=== PATIENT | female | born 1970 ===

== ENCOUNTER 2016-11-08 16:32 | Emergency (ER) | payer OTHER ==
[2016-11-08 16:58] VITALS: BP 129/69; PULSE 73; RESP 16; TEMP 97.8; O2SAT 99
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
== END 2016-11-08 18:43 | disposition home or self-care (01) ==
LOC: H.ER 16:32
DX: S46.912A Strain of unspecified muscle, fascia and tendon at shoulder and upper arm level, left arm, initial encounter (principal); S46.911A Strain of unspecified muscle, fascia and tendon at shoulder and upper arm level, right arm, initial encounter

== ENCOUNTER 2016-11-17 10:02 | Emergency (ER) | payer OTHER ==
[2016-11-17 10:07] VITALS: BMI 26.4
[2016-11-17 10:08] VITALS: BP 141/89; PULSE 60; RESP 18; TEMP 98; O2SAT 100
[2016-11-17] MEDS ORDERED: Sodium Chloride 0.9% 1,000 ML IV STA (10:33)
[2016-11-17 11:15] LABS: BASO % 0.5 % (0.0-2.0); EOS # 0.1 K/uL (0.0-0.7); EOS % 0.8 % (0.0-4.0); HEMATOCRIT 34.5 % (34.0-47.0); LYMPH # 2.8 K/uL (1.0-4.3); LYMPH % 39.7 % (20.0-40.0); MEAN CELL VOLUME 89.6 fl (81.0-99.0); MEAN CORPUSCULAR HEMOGLOBIN 30.1 pg (27.0-31.0); MEAN CORPUSCULAR HGB CONC 33.6 g/dL (33.0-37.0); MEAN PLATELET VOLUME 7.2 fl (7.2-11.7); MONO # 0.5 K/uL (0.0-0.8); MONO % 6.5 % (0.0-10.0); NEUT # 3.7 K/uL (1.8-7.0); NEUT % 52.5 % (50.0-75.0); NRBC % 0.1 % (0.0-0.0); RED CELL DISTRIBUTION WIDTH 13.2 % (11.5-14.5); WHITE BLOOD COUNT 7.1 K/uL (4.8-10.8)
[2016-11-17 11:27] LABS: BLOOD UREA NITROGEN 14 mg/dl (7-17); CALCIUM 9.8 mg/dL (8.4-10.2); CARBON DIOXIDE 29 mmol/L (22-30); CHLORIDE 101 mmol/L (98-107); GFR AFRICAN-AMERICAN > 60; GLUCOSE,RANDOM 93 mg/dL (65-105); POTASSIUM 4.3 MMOL/L (3.6-5.0); SODIUM 142 mmol/l (132-148)
--- NOTE | 2016-11-17 11:48 | CT ---
PROCEDURE: CT HEAD WITHOUT CONTRAST. HISTORY: headache COMPARISON: None available. TECHNIQUE: Axial computed tomography images were obtained through the head/brain without intravenous contrast. Radiation dose: Total exam DLP = 876 mGy-cm. This CT exam was performed using one or more of the following dose reduction techniques: Automated exposure control, adjustment of the mA and/or kV according to patient size, and/or use of iterative reconstruction technique. FINDINGS: HEMORRHAGE: No intracranial hemorrhage. BRAIN: No mass effect or edema. No atrophy or chronic microvascular ischemic changes. VENTRICLES: Unremarkable. No hydrocephalus. CALVARIUM: Unremarkable. PARANASAL SINUSES: Unremarkable as visualized. No significant inflammatory changes. MASTOID AIR CELLS: Unremarkable as visualized. No inflammatory changes. OTHER FINDINGS: None. IMPRESSION: Normal CT of the Head.
--- NOTE | 2016-11-17 13:50 | ED PDOC ---
HPI: Headache Time Seen by Provider: 11/17/16 10:23 Chief Complaint (Nursing): Headache Chief Complaint (Provider): i have a migrane again History Per: Patient History/Exam Limitations: no limitations Onset/Duration Of Symptoms: Hrs (6), Gradual Current Symptoms Are (Timing): Still Present Severity: Moderate Quality: Sharp Preceeding Symptoms: None Associated Symptoms: Photophobia, Nausea. denies: Blurred Vision, Vomiting, Extremity Weakness Additional Complaint(s): 46yo female hx migranes presents from her overnight job where she developed slow onset migrane around 2am. Denies syncope, weakness, fever. She states symptoms typical to past migranes, with nausea and light sensitivity. Also has chronic neck pain for which she relates headaches to. Past Medical History Reviewed: Historical Data, Nursing Documentation, Vital Signs Vital Signs: Last Vital Signs Temp 98.0 F 11/17/16 10:08 Pulse 60 11/17/16 10:08 Resp 18 11/17/16 10:08 BP 141/89 11/17/16 10:08 Pulse Ox 100 11/17/16 10:08 - Medical History PMH: Asthma, Bronchitis, Migraine - Surgical History Surgical History: Tonsillectomy - Family History Family History: States: Diabetes, Hypertension - Living Arrangements Living Arrangements: With Family - Social History Current smoker - smoking cessation education provided: No Alcohol: None - Immunization History Hx Tetanus Toxoid Vaccination: (3 years ago) - Home Medications Home Medications: Ambulatory Orders Medication Instructions Recorded Albuterol HFA [Ventolin HFA 90 2 puff INH Q4H PRN 04/19/14 mcg/actuation (8 g)] Famotidine [Pepcid] 20 mg PO ONCE #14 tab 04/19/14 Cyclobenzaprine HCl [Flexeril] 10 mg PO Q8H #10 tab 07/15/14 Naproxen [Naprosyn] 500 mg PO Q12H #20 tab 07/15/14 Famotidine [Pepcid] 20 mg PO DAILY PRN #6 tab 08/27/14 Ibuprofen [Motrin] 600 mg PO Q8 PRN #6 tab 08/27/14 Ondansetron [Zofran] 4 mg PO Q8H PRN #6 tab 08/27/14 Azithromycin [Zithromax Z-Emmanuel] 250 mg PO DAILY #5 tab 04/15/15 Nitrofurantoin Macrocrystals 100 mg PO BID #14 cap 09/10/15 [Macrobid] Acetaminophen with Codeine 1 tab PO Q8H #10 tab 09/18/15 [Tylenol with Codeine No. 3 300 mg-30 mg] Naproxen [Naprosyn] 500 mg PO Q12H #20 tab 09/18/15 Azithromycin [Zithromax Z-Emmanuel] 250 mg PO DAILY #1 pkg 11/19/15 Prednisone 60 mg PO QAM #12 tablet 11/19/15 traMADol [Ultram] 50 mg PO Q6 #16 tab 11/19/15 Metoclopramide HCl [Reglan] 10 mg PO Q8 PRN #10 tablet 01/08/16 Naproxen [Naprosyn] 500 mg PO BID PRN #30 tab 01/08/16 Azithromycin [Zithromax Z-Emmanuel] 250 mg PO DAILY #1 pkg 02/19/16 Methylprednisolone [Medrol Dosepak] 4 mg PO ASDIR #1 pkg 02/19/16 Promethazine HCl/Codeine 10 ml PO Q6 PRN #6 oz 02/19/16 [Prometh-Codein 6.25-10 mg/5 ml] Naproxen [Naprosyn] 500 mg PO Q12 PRN #14 tablet 05/03/16 Ibuprofen [Motrin] 600 mg PO Q6 #20 tab 05/19/16 traMADol [Ultram] 50 mg PO Q8 #10 tab 09/15/16 Naproxen [Naprosyn Tab] 375 mg PO Q8 PRN #21 tab 11/08/16 diaZEpam [Valium] 5 mg PO Q6 PRN #8 tab 11/08/16 Metoclopramide [Reglan] 10 mg PO TID PRN #10 tab 11/17/16 Naproxen [Naprosyn] 500 mg PO BID PRN #14 tablet 11/17/16 - Allergies Allergies/Adverse Reactions: Allergies Allergy/AdvReac Type Severity Reaction Status Date / Time acetaminophen [From Tylenol] AdvReac NAUSEA Verified 05/19/16 17:10 Review of Systems ROS Statement: Except As Marked, All Systems Reviewed And Found Negative Constitutional: Negative for: Fever, Chills Eyes: Positive for: Pain. Negative for: Eyelid Inflammation, Redness Cardiovascular: Negative for: Chest Pain, Palpitations Respiratory: Negative for: Cough, Shortness of Breath Gastrointestinal: Positive for: Nausea. Negative for: Vomiting Genitourinary Female: Negative for: Dysuria, Frequency, Incontinence Musculoskeletal: Negative for: Shoulder Pain Skin: Negative for: Rash, Lesions Neurological: Positive for: Headache. Negative for: Weakness, Numbness, Incoordination, Change in Speech, Altered Mental Status, Dizziness Psych: Negative for: Anxiety, Depression Physical Exam - Reviewed Nursing Documentation Reviewed: Yes Vital Signs Reviewed: Yes - Physical Exam Appears: Positive for: Well, Non-toxic, No Acute Distress Head Exam: Positive for: ATRAUMATIC, NORMAL INSPECTION, NORMOCEPHALIC Skin: Positive for: Normal Color, Warm, DRY Eye Exam: Positive for: EOMI, Normal appearance, PERRL ENT: Positive for: Normal ENT Inspection Neck: Positive for: Normal, Painless ROM Cardiovascular/Chest: Positive for: Regular Rate, Rhythm Respiratory: Positive for: CNT, Normal Breath Sounds Gastrointestinal/Abdominal: Positive for: Normal Exam, Bowel Sounds, Soft Back: Positive for: Normal Inspection Extremity: Positive for: Normal ROM Neurologic/Psych: Positive for: Alert, Oriented - Laboratory Results Result Diagrams: 11/17/16 11:11 11/17/16 11:11 - ECG O2 Sat by Pulse Oximetry: 100 Pulse Ox Interpretation: Normal - CT Scan/US CT brain Other Rad Studies (CT/US): Radiology Report Reviewed Other Rad Interpretation: normal brain Medical Decision Making Medical Decision Making: labs and CT brain ordered. IVF, toradol and reglan initiated in ED. CT report and labs reviewed. Improved over course of 3 hours. Tolerated PO after hunger returned. Denies neck pain or headache on re-eval, wants to go home. Sleep habits discussed given overnight job. Disposition - Clinical Impression Clinical Impression: Headache - Patient ED Disposition Is Patient to be Admitted: No Counseled Patient/Family Regarding: Studies Performed, Diagnosis, Need For Followup, Rx Given - Disposition Referrals: Babar Marcelino MD [Medical Doctor] - Disposition: Routine/Home Disposition Time: 12:35 Condition: STABLE Additional Instructions: Followup with neurologist as directed. Take medication as needed for symptoms. Prescriptions: Naproxen [Naprosyn] 500 mg PO BID PRN #14 tablet PRN Reason: Pain, Moderate (4-7) Metoclopramide [Reglan] 10 mg PO TID PRN #10 tab PRN Reason: Migraine Headache Instructions: Acute Headache (ED) Print Language: INDONESIAN
== END 2016-11-17 13:46 | disposition home or self-care (01) ==
LOC: H.ER 10:02
DX: R51 Headache (principal); R11.0 Nausea; J45.909 Unspecified asthma, uncomplicated

== ENCOUNTER 2017-05-17 10:36 | Emergency (ER) | payer OTHER ==
[2017-05-17 10:43] VITALS: O2SAT 100; BMI 26.1
--- NOTE | 2017-05-17 12:30 | ED PDOC ---
HPI: General Adult Time Seen by Provider: 05/17/17 10:47 Chief Complaint (Nursing): Cough, Cold, Congestion History Per: Patient Additional Complaint(s): Pt. states for the past week she's had cough productive yellow sputum associated with tactile fever. Also reports developing atraumatic non-radiating pain to the L shoulder. Denies numbness, tingling, hemoptysis, recent travel, chest pain, SOB, palpitations. Past Medical History Reviewed: Historical Data, Nursing Documentation, Vital Signs Vital Signs: Last Vital Signs Temp 98.5 F 05/17/17 10:42 Pulse 72 05/17/17 10:42 Resp 20 05/17/17 10:42 BP 125/78 05/17/17 10:42 Pulse Ox 100 05/17/17 10:42 - Medical History PMH: Asthma, Bronchitis, Migraine - Surgical History Surgical History: Tonsillectomy - Family History Family History: States: Diabetes, Hypertension - Immunization History Hx Tetanus Toxoid Vaccination: (3 years ago) - Home Medications Home Medications: Ambulatory Orders Medication Instructions Recorded Albuterol HFA [Ventolin HFA 90 2 puff INH Q4H PRN 04/19/14 mcg/actuation (8 g)] Famotidine [Pepcid] 20 mg PO ONCE #14 tab 04/19/14 Cyclobenzaprine HCl [Flexeril] 10 mg PO Q8H #10 tab 07/15/14 Naproxen [Naprosyn] 500 mg PO Q12H #20 tab 07/15/14 Famotidine [Pepcid] 20 mg PO DAILY PRN #6 tab 08/27/14 Ibuprofen [Motrin] 600 mg PO Q8 PRN #6 tab 08/27/14 Ondansetron [Zofran] 4 mg PO Q8H PRN #6 tab 08/27/14 Azithromycin [Zithromax Z-Emmanuel] 250 mg PO DAILY #5 tab 04/15/15 Nitrofurantoin Macrocrystals 100 mg PO BID #14 cap 09/10/15 [Macrobid] Acetaminophen with Codeine 1 tab PO Q8H #10 tab 09/18/15 [Tylenol with Codeine No. 3 300 mg-30 mg] Naproxen [Naprosyn] 500 mg PO Q12H #20 tab 09/18/15 Azithromycin [Zithromax Z-Emmanuel] 250 mg PO DAILY #1 pkg 11/19/15 Prednisone 60 mg PO QAM #12 tablet 11/19/15 traMADol [Ultram] 50 mg PO Q6 #16 tab 11/19/15 Metoclopramide HCl [Reglan] 10 mg PO Q8 PRN #10 tablet 01/08/16 Naproxen [Naprosyn] 500 mg PO BID PRN #30 tab 01/08/16 Azithromycin [Zithromax Z-Emmanuel] 250 mg PO DAILY #1 pkg 02/19/16 Methylprednisolone [Medrol Dosepak] 4 mg PO ASDIR #1 pkg 02/19/16 Promethazine HCl/Codeine 10 ml PO Q6 PRN #6 oz 02/19/16 [Prometh-Codein 6.25-10 mg/5 ml] Naproxen [Naprosyn] 500 mg PO Q12 PRN #14 tablet 05/03/16 Ibuprofen [Motrin] 600 mg PO Q6 #20 tab 05/19/16 traMADol [Ultram] 50 mg PO Q8 #10 tab 09/15/16 Naproxen [Naprosyn Tab] 375 mg PO Q8 PRN #21 tab 11/08/16 diaZEpam [Valium] 5 mg PO Q6 PRN #8 tab 11/08/16 Metoclopramide [Reglan] 10 mg PO TID PRN #10 tab 11/17/16 Naproxen [Naprosyn] 500 mg PO BID PRN #14 tablet 11/17/16 Azithromycin [Zithromax] 250 mg PO DAILY #6 tab 05/17/17 Benzonatate [Tessalon Perle] 100 mg PO Q8 PRN #30 capsule 05/17/17 Cyclobenzaprine [Cyclobenzaprine 10 mg PO Q8 PRN #30 tab 05/17/17 HCl] Meloxicam [Mobic] 7.5 mg PO DAILY PRN #30 tab 05/17/17 - Allergies Allergies/Adverse Reactions: Allergies Allergy/AdvReac Type Severity Reaction Status Date / Time acetaminophen [From Tylenol] AdvReac NAUSEA Verified 05/19/16 17:10 Review of Systems ROS Statement: Except As Marked, All Systems Reviewed And Found Negative Respiratory: Positive for: Cough, Sputum Musculoskeletal: Positive for: Shoulder Pain Physical Exam - Physical Exam Appears: Positive for: Well, Non-toxic, No Acute Distress Skin: Positive for: Normal Color, Warm. Negative for: Rash Eye Exam: Positive for: Normal appearance ENT: Positive for: Normal ENT Inspection Neck: Positive for: Normal, Painless ROM Cardiovascular/Chest: Positive for: Regular Rate, Rhythm Respiratory: Positive for: Normal Breath Sounds. Negative for: Crackles, Rales , Wheezing Pulses-Radial (L): 2+ Pulses-Radial (R): 2+ Extremity: Positive for: Normal ROM, Capillary Refill (< 2 seconds of LUE), Other (L shoulder with parascapular muscle spasm without deformity or lateral shoulder tenderness; equal community support professional strength b/l) Neurologic/Psych: Positive for: Alert, Oriented - ECG O2 Sat by Pulse Oximetry: 100 - Radiology X-Ray: Interpreted by Me (CXR) X-Ray Interpretation: No Acute Disease Disposition - Clinical Impression Clinical Impression: Acute bronchitis, Muscle spasm - Patient ED Disposition Is Patient to be Admitted: No - Disposition Disposition: Routine/Home Disposition Time: 12:37 Condition: STABLE Prescriptions: Azithromycin [Zithromax] 250 mg PO DAILY #6 tab Benzonatate [Tessalon Perle] 100 mg PO Q8 PRN #30 capsule PRN Reason: Cough Cyclobenzaprine [Cyclobenzaprine HCl] 10 mg PO Q8 PRN #30 tab PRN Reason: Muscle Spasm Meloxicam [Mobic] 7.5 mg PO DAILY PRN #30 tab PRN Reason: Pain, Mild (1-3) Instructions: Acute Bronchitis (ED), Muscle Spasm (ED) Print Language: GERMAN
[2017-05-17 13:05] VITALS: BP 119/64; PULSE 67; RESP 16; TEMP 98.2
--- NOTE | 2017-05-17 13:34 | RAD ---
HISTORY: cough COMPARISON: 11/18/2015 No prior. TECHNIQUE: Chest PA and lateral FINDINGS: LUNGS: No active pulmonary disease. PLEURA: No significant pleural effusion identified. No pneumothorax apparent. CARDIOVASCULAR: Normal. OSSEOUS STRUCTURES: No significant abnormalities. VISUALIZED UPPER ABDOMEN: Normal. OTHER FINDINGS: None. IMPRESSION: No active disease. No significant interval change compared to the prior examination(s). Please note: No preliminary report/ innterpretation of this examination provided by emergency department personnel.
--- NOTE | 2017-05-18 10:36 | CARD ---
APPROVED REPORT EKG Measurement Heart [id number] <Conclusion> Normal sinus rhythm Septal infarct, age undetermined Abnormal ECG
== END 2017-05-17 13:04 | disposition home or self-care (01) ==
LOC: H.ER 10:36
DX: J20.9 Acute bronchitis, unspecified (principal); M25.512 Pain in left shoulder
CPT/HCPCS: 71020; 81025; 93005; 96372; 99284; J1885

== ENCOUNTER 2017-06-26 11:33 | Emergency (ER) | payer OTHER ==
[2017-06-26 11:33] VITALS: BMI 26.1
[2017-06-26 11:57] VITALS: RESP 16
[2017-06-26] MEDS ORDERED: Sodium Chloride 0.9% 1,000 ML IV STA (12:10)
[2017-06-26 13:19] LABS: BASO # 0.1 K/uL (0.0-0.2); BASO % 1.7 % (0.0-2.0); EOS # 0.1 K/uL (0.0-0.7); EOS % 1.7 % (0.0-4.0); HEMATOCRIT 35.9 % (34.0-47.0); LYMPH # 3.6 K/uL (1.0-4.3); LYMPH % 46.3 % (20.0-40.0); MEAN CELL VOLUME 89.8 fl (81.0-99.0); MEAN CORPUSCULAR HEMOGLOBIN 29.9 pg (27.0-31.0); MEAN CORPUSCULAR HGB CONC 33.3 g/dL (33.0-37.0); MONO # 0.6 K/uL (0.0-0.8); MONO % 7.2 % (0.0-10.0); NEUT # 3.3 K/uL (1.8-7.0); NEUT % 43.1 % (50.0-75.0); NRBC % 0.1 % (0.0-0.0); RED CELL DISTRIBUTION WIDTH 13.2 % (11.5-14.5); WHITE BLOOD COUNT 7.7 K/uL (4.8-10.8)
[2017-06-26 13:28] LABS: RBC URINE 6 /hpf (0-3); URINE BACTERIA RARE (<OCC); URINE BILIRUBIN NEGATIVE (NEGATIVE); URINE BLOOD NEGATIVE (NEGATIVE); URINE COLOR YELLOW (YELLOW); URINE GLUCOSE (UA) NEG (Normal); URINE KETONE NEGATIVE (NEGATIVE); URINE LEUKOCYTE ESTERASE NEG Leu/uL (Negative); URINE PROTEIN 30 mg/dL (NEGATIVE); WBC URINE 1 /hpf (0-5)
[2017-06-26 13:32] LABS: ALB/GLOB RATIO 1.3 (1.0-2.1); ALKALINE PHOSPHATASE 66 U/L (38-126); ALT/SGPT 30 U/L (9-52); AST/SGOT 20 U/L (14-36); BILIRUBIN,TOTAL 0.4 mg/dl (0.2-1.3); BLOOD UREA NITROGEN 13 mg/dl (7-17); CARBON DIOXIDE 27 mmol/L (22-30); CHLORIDE 106 mmol/L (98-107); GFR AFRICAN-AMERICAN > 60; GLUCOSE,RANDOM 75 mg/dL (65-105); POTASSIUM 3.9 MMOL/L (3.6-5.0); SODIUM 141 mmol/l (132-148); TOTAL PROTEIN 7.3 G/DL (6.3-8.2)
--- NOTE | 2017-06-26 14:51 | ED PDOC ---
HPI: General Adult Time Seen by Provider: 06/26/17 12:09 Chief Complaint (Nursing): Weakness/Neurological Deficit Chief Complaint (Provider): Dizziness History Per: Patient History/Exam Limitations: no limitations Additional Complaint(s): Mee Valiente is a 46 year old female that presents to the ED with a history of asthma, bronchitis, and migraines that presents to the ED with a chief complaint of dizziness and a concern of missing her period. Patient reports that her LMP was on 05/11/17 and that she has had sexual intercourse since then, concern for . Patient reports that after the sexual encounter and approximately 2 weeks ago she had one day of discharge but that has since resolved. She states that she has some dysuria, but denies any abdominal pain, back pain, fever, vomiting, or diarrhea. Past Medical History Reviewed: Historical Data, Nursing Documentation, Vital Signs Vital Signs: Last Vital Signs Temp Pulse 79 06/26/17 11:52 Resp 16 06/26/17 11:52 BP 116/59 L 06/26/17 11:52 Pulse Ox 99 06/26/17 15:27 - Medical History PMH: Asthma, Bronchitis, Migraine - Surgical History Surgical History: Tonsillectomy - Family History Family History: States: Diabetes, Hypertension - Immunization History Hx Tetanus Toxoid Vaccination: (3 years ago) - Home Medications Home Medications: Ambulatory Orders Medication Instructions Recorded Albuterol HFA [Ventolin HFA 90 2 puff INH Q4H PRN 04/19/14 mcg/actuation (8 g)] Famotidine [Pepcid] 20 mg PO ONCE #14 tab 04/19/14 Cyclobenzaprine HCl [Flexeril] 10 mg PO Q8H #10 tab 07/15/14 Naproxen [Naprosyn] 500 mg PO Q12H #20 tab 07/15/14 Famotidine [Pepcid] 20 mg PO DAILY PRN #6 tab 08/27/14 Ibuprofen [Motrin] 600 mg PO Q8 PRN #6 tab 08/27/14 Ondansetron [Zofran] 4 mg PO Q8H PRN #6 tab 08/27/14 Azithromycin [Zithromax Z-Emmanuel] 250 mg PO DAILY #5 tab 04/15/15 Nitrofurantoin Macrocrystals 100 mg PO BID #14 cap 09/10/15 [Macrobid] Acetaminophen with Codeine 1 tab PO Q8H #10 tab 09/18/15 [Tylenol with Codeine No. 3 300 mg-30 mg] Naproxen [Naprosyn] 500 mg PO Q12H #20 tab 09/18/15 Azithromycin [Zithromax Z-Emmanuel] 250 mg PO DAILY #1 pkg 11/19/15 Prednisone 60 mg PO QAM #12 tablet 11/19/15 traMADol [Ultram] 50 mg PO Q6 #16 tab 11/19/15 Metoclopramide HCl [Reglan] 10 mg PO Q8 PRN #10 tablet 01/08/16 Naproxen [Naprosyn] 500 mg PO BID PRN #30 tab 01/08/16 Azithromycin [Zithromax Z-Emmanuel] 250 mg PO DAILY #1 pkg 02/19/16 Methylprednisolone [Medrol Dosepak] 4 mg PO ASDIR #1 pkg 02/19/16 Promethazine HCl/Codeine 10 ml PO Q6 PRN #6 oz 02/19/16 [Prometh-Codein 6.25-10 mg/5 ml] Naproxen [Naprosyn] 500 mg PO Q12 PRN #14 tablet 05/03/16 Ibuprofen [Motrin] 600 mg PO Q6 #20 tab 05/19/16 traMADol [Ultram] 50 mg PO Q8 #10 tab 09/15/16 Naproxen [Naprosyn Tab] 375 mg PO Q8 PRN #21 tab 11/08/16 diaZEpam [Valium] 5 mg PO Q6 PRN #8 tab 11/08/16 Metoclopramide [Reglan] 10 mg PO TID PRN #10 tab 11/17/16 Naproxen [Naprosyn] 500 mg PO BID PRN #14 tablet 11/17/16 Azithromycin [Zithromax] 250 mg PO DAILY #6 tab 05/17/17 Benzonatate [Tessalon Perle] 100 mg PO Q8 PRN #30 capsule 05/17/17 Cyclobenzaprine [Cyclobenzaprine 10 mg PO Q8 PRN #30 tab 05/17/17 HCl] Meloxicam [Mobic] 7.5 mg PO DAILY PRN #30 tab 05/17/17 Ciprofloxacin [Cipro] 250 mg PO BID #6 tab 06/26/17 - Allergies Allergies/Adverse Reactions: Allergies Allergy/AdvReac Type Severity Reaction Status Date / Time acetaminophen [From Tylenol] AdvReac NAUSEA Verified 05/19/16 17:10 Review of Systems Constitutional: Negative for: Fever Gastrointestinal: Negative for: Vomiting, Abdominal Pain, Diarrhea Genitourinary Female: Positive for: Dysuria (mild) Musculoskeletal: Negative for: Back Pain Physical Exam - Reviewed Nursing Documentation Reviewed: Yes Vital Signs Reviewed: Yes - Physical Exam Appears: Positive for: Non-toxic, No Acute Distress Head Exam: Positive for: ATRAUMATIC, NORMOCEPHALIC Skin: Positive for: Normal Color, Warm Eye Exam: Positive for: Normal appearance, EOMI, PERRL Neck: Positive for: Normal, Supple Cardiovascular/Chest: Positive for: Regular Rate, Rhythm. Negative for: Murmur Respiratory: Positive for: Normal Breath Sounds. Negative for: Wheezing Gastrointestinal/Abdominal: Positive for: Normal Exam, Soft. Negative for: Tenderness Pelvic Exam: Positive for: External Exam Normal, Other (trace homogenous discharge). Negative for: Active Bleeding, Blood, Cervicitis, Tender Uterus Back: Positive for: Normal Inspection. Negative for: L CVA Tenderness, R CVA Tenderness Extremity: Positive for: Normal ROM. Negative for: Deformity, Swelling Neurologic/Psych: Positive for: Alert, emergency room orderly II-XII, Oriented, Cerebellar Tests ( normal), Gait (steady). Negative for: Motor/Sensory Deficits, Aphasia, Facial Droop - Laboratory Results Result Diagrams: 06/26/17 13:10 06/26/17 13:10 - ECG O2 Sat by Pulse Oximetry: 99 (RA) Pulse Ox Interpretation: Normal Medical Decision Making Medical Decision Making: Impression: Dizziness Plan: * Accucheck * Urine * Urinalysis * Urine dip * NaCl 1000 mLs at 1000 mLs/hr * Reevaluation Bloodwork revealed stable anemia. UA reveals trace red cells without glucocytes , urine culture was ordered. Given symptoms, patient will likely be given a short course of antibiotics and offered a pelvic exam. Followup cultures, Rx cipro x3 days, see Dr Zafar for full pelvic exam and pap / workup of ammenorrhea Scribe Attestation: Documented by Rimma Marquez, acting as a scribe for Jeremy Randall III, DO. Provider Scribe Attestation: All medical record entries made by the Scribe were at my direction and personally dictated by me. I have reviewed the chart and agree that the record accurately reflects my personal performance of the history, physical exam, medical decision making, and the department course for this patient. I have also personally directed, reviewed, and agree with the discharge instructions and disposition. Disposition - Clinical Impression Clinical Impression: Dizziness, UTI (urinary tract infection) - Patient ED Disposition Is Patient to be Admitted: No Counseled Patient/Family Regarding: Studies Performed, Diagnosis, Need For Followup, Rx Given - Disposition Referrals: Sushil Zafar MD [Staff Provider] - Disposition: Routine/Home Disposition Time: 14:59 Condition: STABLE Additional Instructions: Followup with SAFETY TECHNICIAN and your primary doctor in 2-3 days. Return to ER for any worse or new symptoms. Prescriptions: Ciprofloxacin [Cipro] 250 mg PO BID #6 tab Instructions: Lightheadedness (ED), Urinary Tract Infection in Women (ED) Forms: [employer] (Ukrainian)
[2017-06-26 15:39] VITALS: BP 121/64; PULSE 73; TEMP 98.3
[2017-06-26 15:40] VITALS: O2SAT 99
== END 2017-06-26 15:38 | disposition home or self-care (01) ==
LOC: H.ER 11:33
DX: R42 Dizziness and giddiness (principal); N39.0 Urinary tract infection, site not specified
CPT/HCPCS: 80053; 81003; 81025; 82948; 84484; 84702; 85025; 87070; 87086; 87491; 87591; 96360; 99284; J7040

== ENCOUNTER 2017-12-15 16:54 | Emergency (ER) | payer OTHER ==
[2017-12-15 16:54] VITALS: BMI 26.1
--- NOTE | 2017-12-15 18:09 | RAD ---
HISTORY: left flank pain, worse with breathing and palpitations. COMPARISON: 05/17/2017 TECHNIQUE: Chest PA and lateral FINDINGS: LUNGS: No active pulmonary disease. PLEURA: No significant pleural effusion identified. No pneumothorax apparent. CARDIOVASCULAR: Normal. OSSEOUS STRUCTURES: No significant abnormalities. VISUALIZED UPPER ABDOMEN: Normal. OTHER FINDINGS: None. IMPRESSION: No active disease. No significant interval change compared to the prior examination(s).
[2017-12-15] MEDS ORDERED: Oxycodone/Acetaminophen 5/325 mg Tab PO STA (19:03)
--- NOTE | 2017-12-15 19:10 | ED PDOC ---
HPI: Back Time Seen by Provider: 12/15/17 17:19 Chief Complaint (Nursing): Back Pain Chief Complaint (Provider): Back Pain History Per: Patient History/Exam Limitations: no limitations Onset/Duration Of Symptoms: Days (x5) Current Symptoms Are (Timing): Still Present Additional Complaint(s): 47 y/o female with no significant pmhx, who presents to the ED for evaluation of left mid back and flank pain x5 days. Patient denies taking any medication for pain or injury. States the pain is exacerbated by deep inspiration, movement of the left arm, and contact to the area. Denies any similar injury in the past. Of note: Patient denies taking oral contraceptives, smoking, history of autoimmune diseases, and fmhx of clotting. PMD: None Past Medical History Reviewed: Historical Data, Nursing Documentation, Vital Signs Vital Signs: Last Vital Signs Temp 97.3 F L 12/15/17 16:59 Pulse 69 12/15/17 16:59 Resp 16 12/15/17 16:59 BP 134/72 12/15/17 16:59 Pulse Ox 100 12/15/17 16:59 - Medical History PMH: Asthma, Bronchitis, Migraine - Surgical History Surgical History: Tonsillectomy - Family History Family History: States: Diabetes, Hypertension - Immunization History Hx Tetanus Toxoid Vaccination: (3 years ago) - Home Medications Home Medications: Ambulatory Orders Medication Instructions Recorded Albuterol HFA [Ventolin HFA 90 2 puff INH Q4H PRN 04/19/14 mcg/actuation (8 g)] Famotidine [Pepcid] 20 mg PO ONCE #14 tab 04/19/14 Cyclobenzaprine HCl [Flexeril] 10 mg PO Q8H #10 tab 07/15/14 Naproxen [Naprosyn] 500 mg PO Q12H #20 tab 07/15/14 Famotidine [Pepcid] 20 mg PO DAILY PRN #6 tab 08/27/14 Ibuprofen [Motrin] 600 mg PO Q8 PRN #6 tab 08/27/14 Ondansetron [Zofran] 4 mg PO Q8H PRN #6 tab 08/27/14 Azithromycin [Zithromax Z-Emmanuel] 250 mg PO DAILY #5 tab 04/15/15 Nitrofurantoin Macrocrystals 100 mg PO BID #14 cap 09/10/15 [Macrobid] Acetaminophen with Codeine 1 tab PO Q8H #10 tab 09/18/15 [Tylenol with Codeine No. 3 300 mg-30 mg] Naproxen [Naprosyn] 500 mg PO Q12H #20 tab 09/18/15 Azithromycin [Zithromax Z-Emmanuel] 250 mg PO DAILY #1 pkg 11/19/15 Prednisone 60 mg PO QAM #12 tablet 11/19/15 traMADol [Ultram] 50 mg PO Q6 #16 tab 11/19/15 Metoclopramide HCl [Reglan] 10 mg PO Q8 PRN #10 tablet 01/08/16 Naproxen [Naprosyn] 500 mg PO BID PRN #30 tab 01/08/16 Azithromycin [Zithromax Z-Emmanuel] 250 mg PO DAILY #1 pkg 02/19/16 Methylprednisolone [Medrol Dosepak] 4 mg PO ASDIR #1 pkg 02/19/16 Promethazine HCl/Codeine 10 ml PO Q6 PRN #6 oz 02/19/16 [Prometh-Codein 6.25-10 mg/5 ml] Naproxen [Naprosyn] 500 mg PO Q12 PRN #14 tablet 05/03/16 Ibuprofen [Motrin] 600 mg PO Q6 #20 tab 05/19/16 traMADol [Ultram] 50 mg PO Q8 #10 tab 09/15/16 Naproxen [Naprosyn Tab] 375 mg PO Q8 PRN #21 tab 11/08/16 diaZEpam [Valium] 5 mg PO Q6 PRN #8 tab 11/08/16 Metoclopramide [Reglan] 10 mg PO TID PRN #10 tab 11/17/16 Naproxen [Naprosyn] 500 mg PO BID PRN #14 tablet 11/17/16 Azithromycin [Zithromax] 250 mg PO DAILY #6 tab 05/17/17 Benzonatate [Tessalon Perle] 100 mg PO Q8 PRN #30 capsule 05/17/17 Cyclobenzaprine [Cyclobenzaprine 10 mg PO Q8 PRN #30 tab 05/17/17 HCl] Meloxicam [Mobic] 7.5 mg PO DAILY PRN #30 tab 05/17/17 Ciprofloxacin [Cipro] 250 mg PO BID #6 tab 06/26/17 oxyCODONE/Acetaminophen [Percocet 1 ea PO Q6H PRN #10 tab 12/15/17 5/325 mg Tab] - Allergies Allergies/Adverse Reactions: Allergies Allergy/AdvReac Type Severity Reaction Status Date / Time acetaminophen [From Tylenol] AdvReac NAUSEA Verified 05/19/16 17:10 ibuprofen [From Motrin] AdvReac VOMITING Verified 12/15/17 16:59 Review of Systems ROS Statement: Except As Marked, All Systems Reviewed And Found Negative Musculoskeletal: Positive for: Back Pain (left) Physical Exam - Reviewed Nursing Documentation Reviewed: Yes Vital Signs Reviewed: Yes - Physical Exam Appears: Positive for: Non-toxic, No Acute Distress Head Exam: Positive for: ATRAUMATIC, NORMAL INSPECTION, NORMOCEPHALIC Skin: Positive for: Normal Color, Warm, Dry Eye Exam: Positive for: Normal appearance Neck: Positive for: Normal, Painless ROM Cardiovascular/Chest: Positive for: Regular Rate, Rhythm. Negative for: Murmur Respiratory: Positive for: Normal Breath Sounds. Negative for: Respiratory Distress Back: Positive for: Other (tenderness to left paraspinal muscles and left trapezius) Neurologic/Psych: Positive for: Alert, Oriented - ECG O2 Sat by Pulse Oximetry: 100 (RA) Pulse Ox Interpretation: Normal Medical Decision Making Medical Decision Makin:38 Plan: --CXR --Valium 5mg PO --Reevaluation Patient states she is allergic to Motrin (hives), but states she takes Advil for pain. No NSAIDS given in ER. 18:03 CXR as read by radiologist: No active disease. No significant interval change compared to the prior examination(s). 19:03 --Percocet 1 tab PO Scribe Attestation: Documented by Sacha Anderson, acting as a scribe for Deena France PA-C. Provider Scribe Attestation: All medical record entries made by the Scribe were at my direction and personally dictated by me. I have reviewed the chart and agree that the record accurately reflects my personal performance of the history, physical exam, medical decision making, and the department course for this patient. I have also personally directed, reviewed, and agree with the discharge instructions and disposition. Disposition - Clinical Impression Clinical Impression: Back pain - Patient ED Disposition Is Patient to be Admitted: No Counseled Patient/Family Regarding: Diagnosis, Need For Followup, Rx Given - Disposition Disposition: Routine/Home Disposition Time: 20:17 Condition: STABLE Prescriptions: oxyCODONE/Acetaminophen [Percocet 5/325 mg Tab] 1 ea PO Q6H PRN #10 tab PRN Reason: Pain, Severe (8-10) Instructions: Upper Back Pain (DC) Forms: [employer] (Greenlandic)
[2017-12-15] MEDS ORDERED: Oxycodone/Acetaminophen 5/325 mg Tab ONE (19:11)
[2017-12-15 20:31] VITALS: BP 115/80; PULSE 70; RESP 13; TEMP 98.1; O2SAT 99
== END 2017-12-15 20:31 | disposition home or self-care (01) ==
LOC: H.ER 16:54
DX: M54.9 Dorsalgia, unspecified (principal); R07.1 Chest pain on breathing; J45.909 Unspecified asthma, uncomplicated

== ENCOUNTER 2018-08-03 18:39 | Emergency (ER) | payer OTHER ==
[2018-08-03 18:39] VITALS: BMI 26.1
[2018-08-03 19:00] VITALS: BP 127/88; PULSE 89; RESP 16; TEMP 98.1; O2SAT 99
[2018-08-03] MEDS ORDERED: Sodium Chloride 0.9% 1,000 ML IV STA (19:44)
--- NOTE | 2018-08-03 19:48 | ED PDOC ---
HPI: Female Pain Time Seen by Provider: 08/03/18 19:31 Chief Complaint (Nursing): Female Genitourinary Chief Complaint (Provider): Female Genitourinary History Per: Patient History/Exam Limitations: no limitations Onset/Duration Of Symptoms: Sudden Onset Current Symptoms Are (Timing): Still Present Additional Complaint(s): 47 year old female with pmHx of migraines and asthma, presents to ED with complaints of discomfort with urination, vaginal discharge, and nausea for 1 day. Patient reports she is 21 days late from her expected menses with (-) home test. She denies vomiting, diarrhea, chest pain, shortness of breath, leg pain, or headache. Patient additionally states she did not use protection with her last sexual partner and has a Hx of miscarriage in the past. PCP: none provided Past Medical History Reviewed: Historical Data, Nursing Documentation, Vital Signs Vital Signs: Last Vital Signs Temp 98.1 F 08/03/18 18:56 Pulse 89 08/03/18 18:56 Resp 16 08/03/18 18:56 BP 127/88 08/03/18 18:56 Pulse Ox 99 08/03/18 18:56 - Medical History PMH: Asthma, Bronchitis, Migraine - Surgical History Surgical History: Tonsillectomy Other surgeries: D&C for ectopic ; right knee - Family History Family History: States: Diabetes, Hypertension - Immunization History Hx Tetanus Toxoid Vaccination: (3 years ago) - Home Medications Home Medications: Ambulatory Orders Medication Instructions Recorded Albuterol HFA [Ventolin HFA 90 2 puff INH Q4H PRN 04/19/14 mcg/actuation (8 g)] Famotidine [Pepcid] 20 mg PO ONCE #14 tab 04/19/14 Cyclobenzaprine HCl [Flexeril] 10 mg PO Q8H #10 tab 07/15/14 Naproxen [Naprosyn] 500 mg PO Q12H #20 tab 07/15/14 Famotidine [Pepcid] 20 mg PO DAILY PRN #6 tab 08/27/14 Ibuprofen [Motrin] 600 mg PO Q8 PRN #6 tab 08/27/14 Ondansetron [Zofran] 4 mg PO Q8H PRN #6 tab 08/27/14 Azithromycin [Zithromax Z-Emmanuel] 250 mg PO DAILY #5 tab 04/15/15 Nitrofurantoin Macrocrystals 100 mg PO BID #14 cap 09/10/15 [Macrobid] Acetaminophen with Codeine 1 tab PO Q8H #10 tab 09/18/15 [Tylenol with Codeine No. 3 300 mg-30 mg] Naproxen [Naprosyn] 500 mg PO Q12H #20 tab 09/18/15 Azithromycin [Zithromax Z-Emmanuel] 250 mg PO DAILY #1 pkg 11/19/15 Prednisone 60 mg PO QAM #12 tablet 11/19/15 traMADol [Ultram] 50 mg PO Q6 #16 tab 11/19/15 Metoclopramide HCl [Reglan] 10 mg PO Q8 PRN #10 tablet 01/08/16 Naproxen [Naprosyn] 500 mg PO BID PRN #30 tab 01/08/16 Azithromycin [Zithromax Z-Emmanuel] 250 mg PO DAILY #1 pkg 02/19/16 Methylprednisolone [Medrol Dosepak] 4 mg PO ASDIR #1 pkg 02/19/16 Promethazine HCl/Codeine 10 ml PO Q6 PRN #6 oz 02/19/16 [Prometh-Codein 6.25-10 mg/5 ml] Naproxen [Naprosyn] 500 mg PO Q12 PRN #14 tablet 05/03/16 Ibuprofen [Motrin] 600 mg PO Q6 #20 tab 05/19/16 traMADol [Ultram] 50 mg PO Q8 #10 tab 09/15/16 Naproxen [Naprosyn Tab] 375 mg PO Q8 PRN #21 tab 11/08/16 diaZEpam [Valium] 5 mg PO Q6 PRN #8 tab 11/08/16 Metoclopramide [Reglan] 10 mg PO TID PRN #10 tab 11/17/16 Naproxen [Naprosyn] 500 mg PO BID PRN #14 tablet 11/17/16 Azithromycin [Zithromax] 250 mg PO DAILY #6 tab 05/17/17 Benzonatate [Tessalon Perle] 100 mg PO Q8 PRN #30 capsule 05/17/17 Cyclobenzaprine [Cyclobenzaprine 10 mg PO Q8 PRN #30 tab 05/17/17 HCl] Meloxicam [Mobic] 7.5 mg PO DAILY PRN #30 tab 05/17/17 Ciprofloxacin [Cipro] 250 mg PO BID #6 tab 06/26/17 oxyCODONE/Acetaminophen [Percocet 1 ea PO Q6H PRN #10 tab 12/15/17 5/325 mg Tab] Nitrofurantoin Macrocrystals 100 mg PO BID #10 cap 08/03/18 [Macrobid] - Allergies Allergies/Adverse Reactions: Allergies Allergy/AdvReac Type Severity Reaction Status Date / Time acetaminophen [From Tylenol] AdvReac NAUSEA Verified 05/19/16 17:10 ibuprofen [From Motrin] AdvReac VOMITING Verified 12/15/17 16:59 Review of Systems ROS Statement: Except As Marked, All Systems Reviewed And Found Negative Cardiovascular: Negative for: Chest Pain Respiratory: Negative for: Shortness of Breath Gastrointestinal: Positive for: Nausea. Negative for: Vomiting, Diarrhea Genitourinary Female: Positive for: Dysuria (discomfort), Vaginal Discharge Musculoskeletal: Negative for: Leg Pain Neurological: Negative for: Headache Physical Exam - Reviewed Nursing Documentation Reviewed: Yes Vital Signs Reviewed: Yes - Physical Exam Appears: Positive for: Well, Non-toxic, No Acute Distress Head Exam: Positive for: ATRAUMATIC, NORMAL INSPECTION, NORMOCEPHALIC Skin: Positive for: Normal Color Eye Exam: Positive for: Normal appearance ENT: Positive for: Normal ENT Inspection Neck: Positive for: Normal Cardiovascular/Chest: Positive for: Regular Rate, Rhythm Respiratory: Positive for: Normal Breath Sounds. Negative for: Respiratory Distress Gastrointestinal/Abdominal: Positive for: Tenderness (across lower pelvis). Negative for: Other (no RUQ, LUQ, or umbilical tenderness) Pelvic Exam: Positive for: External Exam Normal, Speculum Exam Normal, No Cerv. Motion Tender. Negative for: Active Bleeding Back: Positive for: Normal Inspection. Negative for: L CVA Tenderness, R CVA Tenderness Extremity: Positive for: Normal ROM (upper/lower). Negative for: Pedal Edema, Calf Tenderness Neurologic/Psych: Positive for: Alert, Oriented. Negative for: Motor/Sensory Deficits - Laboratory Results Result Diagrams: 08/03/18 20:02 08/03/18 20:02 Interpretation Of Abn Labs: 3.5 k - ECG O2 Sat by Pulse Oximetry: 99 (RA) Pulse Ox Interpretation: Normal - Progress ED Course And Treament: 2133: Stable. AAOx3. Fu with obgyn and pcp. No pain. Medical Decision Making Medical Decision Making: Initial Impression: Dysuria; vaginal discharge Initial Plan: * Labs * IV fluids Time: 2012Urine : negative Scribe Attestation: Documented by Violeta Ramsay, acting as a scribe for Jenaro Simms MD. Provider Scribe Attestation: All medical record entries made by the Scribe were at my direction and personally dictated by me. I have reviewed the chart and agree that the record accurately reflects my personal performance of the history, physical exam, medical decision making, and the department course for this patient. I have also personally directed, reviewed, and agree with the discharge instructions and disposition. Disposition - Clinical Impression Clinical Impression: Irregular periods, UTI (urinary tract infection), Hypokalemia - Patient ED Disposition Is Patient to be Admitted: No Counseled Patient/Family Regarding: Studies Performed, Diagnosis, Need For Followup, Rx Given - Disposition Referrals: [facility] [Outside] - 08/04/18 [facility] [Outside] - 08/04/18 Disposition: Routine/Home Disposition Time: 21:35 Condition: FAIR Additional Instructions: Return if not better in 3 days. Prescriptions: Nitrofurantoin Macrocrystals [Macrobid] 100 mg PO BID #10 cap Instructions: Urinary Tract Infection, Adult (DC), Absent or Irregular Periods, Hypokalemia Forms: [employer] (Georgian), [facility] ED School/Work Excuse - POA Present On Arrival: None
[2018-08-03 20:15] LABS: BASO # 0.1 K/uL (0.0-0.2); BASO % 0.8 % (0.0-2.0); EOS # 0.1 K/uL (0.0-0.7); EOS % 1.2 % (0.0-4.0); HEMOGLOBIN 11.6 g/dL (12.0-16.0); LYMPH # 3.7 K/uL (1.0-4.3); LYMPH % 43.1 % (20.0-40.0); MEAN CELL VOLUME 89.4 fl (81.0-99.0); MEAN CORPUSCULAR HEMOGLOBIN 29.8 pg (27.0-31.0); MEAN CORPUSCULAR HGB CONC 33.3 g/dL (33.0-37.0); MEAN PLATELET VOLUME 7.1 fl (7.2-11.7); MONO # 0.7 K/uL (0.0-0.8); MONO % 7.7 % (0.0-10.0); NEUT % 47.2 % (50.0-75.0); NRBC % 0.2 % (0.0-0.0); RBC 3.89 Mil/uL (3.80-5.20); RED CELL DISTRIBUTION WIDTH 13.4 % (11.5-14.5); WHITE BLOOD COUNT 8.5 K/uL (4.8-10.8)
[2018-08-03 20:22] LABS: ALB/GLOB RATIO 1.2 (1.0-2.1); ALBUMIN 4.2 g/dL (3.5-5.0); ALT/SGPT 23 U/L (9-52); AST/SGOT 27 U/L (14-36); BLOOD UREA NITROGEN 16 mg/dl (7-17); CALCIUM 9.1 mg/dL (8.4-10.2); GFR NON-AFRICAN AMERICAN > 60
[2018-08-03 20:35] LABS: SQUAMOUS EPITHIAL 11 /hpf (0-5); URINE BACTERIA OCC (<OCC); URINE BILIRUBIN NEGATIVE (NEGATIVE); URINE BLOOD LARGE (NEGATIVE); URINE CLARITY CLOUDY (Clear); URINE COLOR YELLOW (YELLOW); URINE GLUCOSE (UA) NEG (NEGATIVE); URINE LEUKOCYTE ESTERASE LARGE Leu/uL (Negative); URINE PROTEIN 30 mg/dL (NEGATIVE)
[2018-08-03] MEDS ORDERED: Potassium Chloride 20 mEq ER Tab PO STA (21:36)
[2018-08-03] MEDS ORDERED: Potassium Chloride 20 mEq ER Tab PO ONE (21:51)
== END 2018-08-03 22:14 | disposition home or self-care (01) ==
LOC: H.ER 18:39
DX: N39.0 Urinary tract infection, site not specified (principal); N92.6 Irregular menstruation, unspecified; E87.6 Hypokalemia; Z88.6 Allergy status to analgesic agent
CPT/HCPCS: 80053; 81003; 81025; 85025; 96360; 99283; J7030

== ENCOUNTER 2018-08-12 09:55 | Emergency (ER) | payer OTHER ==
[2018-08-12 09:58] VITALS: BMI 29.0
[2018-08-12 10:00] VITALS: RESP 17
[2018-08-12] MEDS ORDERED: Alum-Mag Hydrox-Simethicone Susp (30 mL) PO STA (11:01)
[2018-08-12] MEDS ORDERED: Alum-Mag Hydrox-Simethicone Susp (30 mL) ONE (11:29)
--- NOTE | 2018-08-12 12:06 | ED PDOC ---
Upper Extremity Pain/Injury Time Seen by Provider: 08/12/18 10:56 Chief Complaint (Nursing): Upper Extremity Problem/Injury History Per: Patient History/Exam Limitations: no limitations Onset/Duration Of Symptoms: Days Current Symptoms Are (Timing): Still Present Quality: Aching Severity: Moderate Additional Complaint(s): 47 yo F with no PMHx presents with 3 days of right sided shoulder/back/neck pain. Pt states she was on vacation in [place] and thinks she slept wrong. Pt states the pain has prevented her from sleeping and has not improved with warm wraps and Ibuprofen at home. No fever, no recent trauma. Past Medical History Vital Signs: Last Vital Signs Temp 99 F 08/12/18 09:59 Pulse 81 08/12/18 09:59 Resp 17 08/12/18 09:59 BP 150/84 08/12/18 09:59 Pulse Ox 98 08/12/18 09:59 - Medical History PMH: Asthma, Bronchitis, Migraine - Surgical History Surgical History: Tonsillectomy - Family History Family History: States: Diabetes, Hypertension - Immunization History Hx Tetanus Toxoid Vaccination: (3 years ago) - Home Medications Home Medications: Ambulatory Orders Medication Instructions Recorded Albuterol HFA [Ventolin HFA 90 2 puff INH Q4H PRN 04/19/14 mcg/actuation (8 g)] Famotidine [Pepcid] 20 mg PO ONCE #14 tab 04/19/14 Cyclobenzaprine HCl [Flexeril] 10 mg PO Q8H #10 tab 07/15/14 Naproxen [Naprosyn] 500 mg PO Q12H #20 tab 07/15/14 Famotidine [Pepcid] 20 mg PO DAILY PRN #6 tab 08/27/14 Ibuprofen [Motrin] 600 mg PO Q8 PRN #6 tab 08/27/14 Ondansetron [Zofran] 4 mg PO Q8H PRN #6 tab 08/27/14 Azithromycin [Zithromax Z-Emmanuel] 250 mg PO DAILY #5 tab 04/15/15 Nitrofurantoin Macrocrystals 100 mg PO BID #14 cap 09/10/15 [Macrobid] Acetaminophen with Codeine 1 tab PO Q8H #10 tab 09/18/15 [Tylenol with Codeine No. 3 300 mg-30 mg] Naproxen [Naprosyn] 500 mg PO Q12H #20 tab 09/18/15 Azithromycin [Zithromax Z-Emmanuel] 250 mg PO DAILY #1 pkg 11/19/15 Prednisone 60 mg PO QAM #12 tablet 11/19/15 traMADol [Ultram] 50 mg PO Q6 #16 tab 11/19/15 Metoclopramide HCl [Reglan] 10 mg PO Q8 PRN #10 tablet 01/08/16 Naproxen [Naprosyn] 500 mg PO BID PRN #30 tab 01/08/16 Azithromycin [Zithromax Z-Emmanuel] 250 mg PO DAILY #1 pkg 02/19/16 Methylprednisolone [Medrol Dosepak] 4 mg PO ASDIR #1 pkg 02/19/16 Promethazine HCl/Codeine 10 ml PO Q6 PRN #6 oz 02/19/16 [Prometh-Codein 6.25-10 mg/5 ml] Naproxen [Naprosyn] 500 mg PO Q12 PRN #14 tablet 05/03/16 Ibuprofen [Motrin] 600 mg PO Q6 #20 tab 05/19/16 traMADol [Ultram] 50 mg PO Q8 #10 tab 09/15/16 Naproxen [Naprosyn Tab] 375 mg PO Q8 PRN #21 tab 11/08/16 diaZEpam [Valium] 5 mg PO Q6 PRN #8 tab 11/08/16 Metoclopramide [Reglan] 10 mg PO TID PRN #10 tab 11/17/16 Naproxen [Naprosyn] 500 mg PO BID PRN #14 tablet 11/17/16 Azithromycin [Zithromax] 250 mg PO DAILY #6 tab 05/17/17 Benzonatate [Tessalon Perle] 100 mg PO Q8 PRN #30 capsule 05/17/17 Cyclobenzaprine [Cyclobenzaprine 10 mg PO Q8 PRN #30 tab 05/17/17 HCl] Meloxicam [Mobic] 7.5 mg PO DAILY PRN #30 tab 05/17/17 Ciprofloxacin [Cipro] 250 mg PO BID #6 tab 06/26/17 oxyCODONE/Acetaminophen [Percocet 1 ea PO Q6H PRN #10 tab 12/15/17 5/325 mg Tab] Nitrofurantoin Macrocrystals 100 mg PO BID #10 cap 08/03/18 [Macrobid] Cyclobenzaprine [Cyclobenzaprine 10 mg PO BID PRN #10 tab 08/12/18 HCl] - Allergies Allergies/Adverse Reactions: Allergies Allergy/AdvReac Type Severity Reaction Status Date / Time acetaminophen [From Tylenol] AdvReac NAUSEA Verified 08/12/18 10:09 ibuprofen [From Motrin] AdvReac VOMITING Verified 08/12/18 10:09 Physical Exam - Reviewed Vital Signs Reviewed: Yes - Physical Exam Appears: Positive for: Well, Non-toxic, No Acute Distress Head Exam: Positive for: ATRAUMATIC, NORMAL INSPECTION, NORMOCEPHALIC Skin: Positive for: Normal Color, Warm, Dry Eye Exam: Positive for: Normal appearance Neck: Positive for: Decreased ROM, Pain On Movement Of Neck (decreased rotation to the right. No spinal TTP. No pain on flexion/extension. No palpable deformities.) Cardiovascular/Chest: Positive for: Regular Rate, Rhythm, Chest Non Tender Respiratory: Positive for: Normal Breath Sounds Gastrointestinal/Abdominal: Positive for: Normal Exam Neurologic/Psych: Positive for: Alert, media relations coordinator II-XII, Oriented - ECG O2 Sat by Pulse Oximetry: 98 Medical Decision Making Medical Decision Making: Pt with musculoskeletal neck pain. Pt given Toradol and Flexeril. On questioning, pt explained that "allergy" to ibuprofen was a dislike of a chalky taste and stomach upset therefore GI prophylaxis given with Toradol. Improvement in symptoms. Pt to follow up with primary medical doctor. Rx for Flexeril and Naproxen given. Disposition - Clinical Impression Clinical Impression: Cervicalgia - Patient ED Disposition Is Patient to be Admitted: No - Disposition Disposition: Routine/Home Disposition Time: 12:10 Condition: IMPROVED Additional Instructions: Take Flexeril as needed for muscle spasm. Do not drive, operate machinery, or perform dangerous activities if you are on Flexeril because it will make you dizzy. Follow up with primary medical doctor as needed. Prescriptions: Cyclobenzaprine [Cyclobenzaprine HCl] 10 mg PO BID PRN #10 tab PRN Reason: Muscle Spasm Instructions: Generalized Neck Pain (DC) Forms: [employer] ([place])
[2018-08-12 12:51] VITALS: BP 139/69; PULSE 77; TEMP 98.6; O2SAT 100
== END 2018-08-12 12:49 | disposition home or self-care (01) ==
LOC: H.ER 09:55
DX: M54.2 Cervicalgia (principal)
CPT/HCPCS: 96374; 96375; 99284; J1885

== ENCOUNTER 2018-10-09 08:28 | Emergency (ER) | payer OTHER ==
[2018-10-09 08:28] VITALS: BMI 29.0
--- NOTE | 2018-10-09 10:33 | ED PDOC ---
HPI: Abdomen Time Seen by Provider: 10/09/18 08:37 Chief Complaint (Nursing): Abdominal Pain Chief Complaint (Provider): Abdominal Pain History Per: Patient History/Exam Limitations: no limitations Onset/Duration Of Symptoms: Days (x1), Intermittent Episodes, Worse Since Current Symptoms Are (Timing): Still Present Additional Complaint(s): 47 year old female with past history of asthma and migraines, presents to the emergency department with a complaint of lower abdominal pain radiating to her back associated with pain on urination and nausea since 0100 this morning. Patient has had similar symptoms monthly due to diagnosis of uterine fibroads seen on a previous ultrasound. However, she states that today, the symptoms were the the most severe she has ever experienced. She denies any vomiting or diarrhea. Patient reports taking Midol for relief at 0545 and 0705 prior to visit. CRAFT SUPERINTENDENT: Dr. Sushil Zafar Past Medical History Reviewed: Historical Data, Nursing Documentation, Vital Signs Vital Signs: Last Vital Signs Temp 98.5 F 10/09/18 08:33 Pulse 66 10/09/18 08:33 Resp 18 10/09/18 08:33 BP 128/89 10/09/18 08:33 Pulse Ox 98 10/09/18 08:33 - Medical History PMH: Asthma, Bronchitis, Migraine - Surgical History Surgical History: Tonsillectomy - Family History Family History: States: Diabetes, Hypertension - Immunization History Hx Tetanus Toxoid Vaccination: (3 years ago) - Home Medications Home Medications: Ambulatory Orders Medication Instructions Recorded Albuterol HFA [Ventolin HFA 90 2 puff INH Q4H PRN 04/19/14 mcg/actuation (8 g)] Cyclobenzaprine [Cyclobenzaprine 10 mg PO BID PRN #10 tab 08/12/18 HCl] - Allergies Allergies/Adverse Reactions: Allergies Allergy/AdvReac Type Severity Reaction Status Date / Time acetaminophen [From Tylenol] AdvReac NAUSEA Verified 10/09/18 08:46 ibuprofen [From Motrin] AdvReac VOMITING Verified 10/09/18 08:46 Review of Systems ROS Statement: Except As Marked, All Systems Reviewed And Found Negative Gastrointestinal: Positive for: Nausea, Abdominal Pain (lower). Negative for: Vomiting, Diarrhea Genitourinary Female: Positive for: Dysuria Musculoskeletal: Positive for: Back Pain (lower) Physical Exam - Reviewed Nursing Documentation Reviewed: Yes Vital Signs Reviewed: Yes - Physical Exam Appears: Positive for: Uncomfortable Head Exam: Positive for: ATRAUMATIC, NORMAL INSPECTION, NORMOCEPHALIC Skin: Positive for: Normal Color Eye Exam: Positive for: Normal appearance, EOMI, PERRL ENT: Positive for: Normal ENT Inspection Neck: Positive for: Normal Cardiovascular/Chest: Positive for: Regular Rate, Rhythm Respiratory: Positive for: Normal Breath Sounds. Negative for: Respiratory Distress Pulses-Radial (L): 3+/4+ Pulses-Radial (R): 3+/4+ Gastrointestinal/Abdominal: Positive for: Soft, Tenderness (suprapubic) Back: Positive for: Vertebral Tenderness (paralumbar). Negative for: L CVA Tenderness, R CVA Tenderness Extremity: Positive for: Normal ROM (upper/lower) Neurologic/Psych: Positive for: Alert (x3), Oriented. Negative for: Motor/Sensory Deficits - Laboratory Results Result Diagrams: 10/09/18 10:25 10/09/18 10:25 - ECG O2 Sat by Pulse Oximetry: 98 (RA) Pulse Ox Interpretation: Normal - Progress Re-evaluation Time: 16:06 Condition: Re-examined, Improved Medical Decision Making Medical Decision Making: Initial Impression: lower abdominal pain Differential diagnosis: ovarian cyst; ovarian torsion; UTI; atypical renal colic; complication Initial Plan: * CT ABD/pelvis * Labs including drug screen * Toradol 30mg IVP Time: 1216 --CT ABD/pelvis FINDINGS: LOWER THORAX: Unremarkable. LIVER: Unremarkable. No gross lesion or ductal dilatation. GALLBLADDER AND BILE DUCTS: Unremarkable. PANCREAS: Unremarkable. No gross lesion or ductal dilatation. SPLEEN: Unremarkable. ADRENALS: Unremarkable. No mass. KIDNEYS AND URETERS: Unremarkable. No hydronephrosis. No solid mass. VASCULATURE: Unremarkable. No aortic aneurysm. No atherosclerotic calcification or mural plaque present. BOWEL: Constipation without fecal impaction or obstruction. APPENDIX: A normal appendix is visualized in it's entirety. PERITONEUM: Trace free fluid identified in the pelvis/cul de sac.No free air. LYMPH NODES: Unremarkable. No enlarged lymph nodes. BLADDER: Unremarkable. REPRODUCTIVE: Uterine enlargement containing multiple masses consistent with uterine leiomyoma. No change. BONES: No acute fracture. OTHER FINDINGS: None. IMPRESSION: No acute or significant findings related to/ accounting for the clinical presentation. Stable appearance of the uterus. No evidence of appendicitis or colitis. Trace free fluid in the cul-de-sac. Additional benign and/or incidental findings described above. No significant interval change compared to the prior examination(s). Time: 1243 --Labs reviewed: no significant clinical abnormality including toxicology. Patient continues to report persistent pain. US pelvis/transvaginal and morphine additionally ordered for further evaluation of suprapubic pain. Time: 1559 --US pelvis/transvaginal FINDINGS: The uterus is anteverted measuring 11.4 x 5.4 x 5.4 cm, mildly enlarged. An anterior fundal fibroid is slightly larger measure 1.7 x 1.9 x 1.4 cm compared 1.1 x 1.5 x 1.6 cm previously. A posterior body fibroid measures 3.7 x 3.4 x 2.7 cm, also larger in size. Both fibroids are subserosal. Endometrium measures 6.0 mm and is grossly unremarkable. Fluid is identified heterogeneously within the endocervical canal potentially reflecting hemorrhagic products. Left central appears reported 08/10/2018. Clinically correlate further. The cervix otherwise appears unremarkable. The right ovary measures 4.1 x 2.1 x 2.0 cm with a likely dominant follicle measure 1.8 cm greatest dimension. The left ovary measures 2.0 x 1.2 x 1.0 cm with a complex cyst measuring 0.9 cm greatest dimension. Bilateral ovarian intra ovarian arterial blood flows identified on color and spectral Doppler analysis. No torsion pattern appreciable. IMPRESSION: 1. Likely hemorrhagic products within the endo cervical canal. Further clinical correlation is recommended. 2. Mildly enlarged uterus identified with increase in size in too small uterine fibroids. 3. Likely dominant follicle right ovary with a small but complex cyst noted at the left ovary. No sonographic pattern to suggest ovarian torsion bilaterally. Scribe Attestation: Documented by Violeta Ramsay, acting as a scribe for Naif Ann MD. Provider Scribe Attestation: All medical record entries made by the Scribe were at my direction and personally dictated by me. I have reviewed the chart and agree that the record accurately reflects my personal performance of the history, physical exam, medical decision making, and the department course for this patient. I have also personally directed, reviewed, and agree with the discharge instructions and disposition. Disposition - Clinical Impression Clinical Impression: Abdominal pain, Fibroid, Pelvic pain, Ovarian cyst - Patient ED Disposition Is Patient to be Admitted: No Discussed With Dr.: Sushil Zafar Doctor Will See Patient In The: Office Counseled Patient/Family Regarding: Studies Performed, Diagnosis, Need For Followup - Disposition Referrals: Sushil Zafar MD [Staff Provider] - Disposition: Routine/Home Disposition Time: 16:07 Condition: GOOD Additional Instructions: PIERRE HOBSON, thank you for letting us take care of you today. Your provider was Naif Ann MD and you were treated for LOWER ABD PAIN. The emergency medical care you received today was directed at your acute symptoms. If you were prescribed any medication, please fill it and take as directed. It may take several days for your symptoms to resolve. Return to the Emergency Department if your symptoms worsen, do not improve, or if you have any other problems. Please contact your doctor or call one of the physicians/clinics you have been referred to that are listed on the Patient Visit Information form that is included in your discharge packet. Bring any paperwork you were given at discharge with you along with any medications you are taking to your follow up visit. Our treatment cannot replace ongoing medical care by a primary care provider outside of the emergency department. Thank you for allowing the [facility] team to be part of your care today. If you had an X-Ray or CT scan: A Radiologist will review the ED reading if any change in treatment is needed we will contact you. If you had a blood, urine, or wound culture: It will take several days for the results, if any change in treatment is needed we will contact you. If you had an STI test: It will take 48 hours for the results. Please call after 1 week if you have not heard back. Instructions: Ovarian Cysts, Uterine Fibroids, Chronic Pelvic Pain in Women
[2018-10-09 10:34] LABS: BASO % 0.3 % (0.0-2.0); EOS % 0.8 % (0.0-4.0); HEMOGLOBIN 11.7 g/dL (12.0-16.0); LYMPH # 2.1 K/uL (1.0-4.3); LYMPH % 37.4 % (20.0-40.0); MEAN CELL VOLUME 88.6 fl (81.0-99.0); MEAN CORPUSCULAR HEMOGLOBIN 29.7 pg (27.0-31.0); MEAN CORPUSCULAR HGB CONC 33.5 g/dL (33.0-37.0); MEAN PLATELET VOLUME 7.3 fl (7.2-11.7); MONO # 0.4 K/uL (0.0-0.8); MONO % 7.1 % (0.0-10.0); NEUT % 54.4 % (50.0-75.0); NRBC % 0.1 % (0.0-0.0); RBC 3.94 Mil/uL (3.80-5.20); RED CELL DISTRIBUTION WIDTH 13.7 % (11.5-14.5); WHITE BLOOD COUNT 5.6 K/uL (4.8-10.8)
[2018-10-09 10:50] LABS: ALB/GLOB RATIO 1.3 (1.0-2.1); ALBUMIN 4.2 g/dL (3.5-5.0); ALT/SGPT 26 U/L (9-52); AST/SGOT 28 U/L (14-36); BLOOD UREA NITROGEN 17 mg/dl (7-17); CALCIUM 9.6 mg/dL (8.4-10.2); GFR NON-AFRICAN AMERICAN > 60; PHENCYCLIDINE, UR NEGATIVE (NEGATIVE)
[2018-10-09] MEDS ORDERED: Iohexol 300 100 ML IJ ONE (10:55)
[2018-10-09] MEDS ORDERED: Sodium Chloride 0.9% 50 ML IV ONE (10:55)
[2018-10-09 11:00] LABS: BARBITURATES, UR NEGATIVE (NEGATIVE); BENZODIAZEPINES, UR NEGATIVE (NEGATIVE); OPIATES, UR NEGATIVE (NEGATIVE)
--- NOTE | 2018-10-09 12:19 | CT ---
Date of service: 10/09/2018 PROCEDURE: CT Abdomen and Pelvis with contrast HISTORY: Lower abdominal pain. Negative test (concurrent with this examination). COMPARISON: 09/10/2015. CT abdomen and pelvis. 03/04/2018 pelvic ultrasound. Summary of findings on the comparison examination: Normal size uterus containing 2 separate fibroids. Unremarkable adnexa. TECHNIQUE: Intravenous contrast dose: 95 cc Omnipaque 300. Radiation dose: Total exam DLP = 760.11 mGy-cm. This CT exam was performed using one or more of the following dose reduction techniques: Automated exposure control, adjustment of the mA and/or kV according to patient size, and/or use of iterative reconstruction technique. FINDINGS: LOWER THORAX: Unremarkable. LIVER: Unremarkable. No gross lesion or ductal dilatation. GALLBLADDER AND BILE DUCTS: Unremarkable. PANCREAS: Unremarkable. No gross lesion or ductal dilatation. SPLEEN: Unremarkable. ADRENALS: Unremarkable. No mass. KIDNEYS AND URETERS: Unremarkable. No hydronephrosis. No solid mass. VASCULATURE: Unremarkable. No aortic aneurysm. No atherosclerotic calcification or mural plaque present. BOWEL: Constipation without fecal impaction or obstruction. APPENDIX: A normal appendix is visualized in it's entirety. PERITONEUM: Trace free fluid identified in the pelvis/cul de sac.No free air. LYMPH NODES: Unremarkable. No enlarged lymph nodes. BLADDER: Unremarkable. REPRODUCTIVE: Uterine enlargement containing multiple masses consistent with uterine leiomyoma. No change. BONES: No acute fracture. OTHER FINDINGS: None. IMPRESSION: No acute or significant findings related to/ accounting for the clinical presentation. Stable appearance of the uterus. No evidence of appendicitis or colitis. Trace free fluid in the cul-de-sac. Additional benign and/or incidental findings described above. No significant interval change compared to the prior examination(s).
--- NOTE | 2018-10-09 15:53 | US ---
Date of service: 10/09/2018 PROCEDURE: Transabdominal and transvaginal pelvic ultrasound was performed with longitudinal and transverse images submitted for interpretation. HISTORY: lower abdominal pain COMPARISON: Transabdominal pelvic ultrasound 03/04/2018. TECHNIQUE: Transabdominal and transvaginal pelvic ultrasonography were performed including color Doppler technique and spectral analysis. FINDINGS: The uterus is anteverted measuring 11.4 x 5.4 x 5.4 cm, mildly enlarged. An anterior fundal fibroid is slightly larger measure 1.7 x 1.9 x 1.4 cm compared 1.1 x 1.5 x 1.6 cm previously. A posterior body fibroid measures 3.7 x 3.4 x 2.7 cm, also larger in size. Both fibroids are subserosal. Endometrium measures 6.0 mm and is grossly unremarkable. Fluid is identified heterogeneously within the endocervical canal potentially reflecting hemorrhagic products. Left central appears reported 08/10/2018. Clinically correlate further. The cervix otherwise appears unremarkable. The right ovary measures 4.1 x 2.1 x 2.0 cm with a likely dominant follicle measure 1.8 cm greatest dimension. The left ovary measures 2.0 x 1.2 x 1.0 cm with a complex cyst measuring 0.9 cm greatest dimension. Bilateral ovarian intra ovarian arterial blood flows identified on color and spectral Doppler analysis. No torsion pattern appreciable. IMPRESSION: 1. Likely hemorrhagic products within the endo cervical canal. Further clinical correlation is recommended. 2. Mildly enlarged uterus identified with increase in size in too small uterine fibroids. 3. Likely dominant follicle right ovary with a small but complex cyst noted at the left ovary. No sonographic pattern to suggest ovarian torsion bilaterally.
[2018-10-09 17:04] VITALS: BP 140/80; PULSE 71; RESP 16; TEMP 98.4; O2SAT 100
== END 2018-10-09 17:15 | disposition home or self-care (01) ==
LOC: H.ER 08:28
DX: R10.2 Pelvic and perineal pain (principal); D25.9 Leiomyoma of uterus, unspecified; N83.291 Other ovarian cyst, right side; Z88.6 Allergy status to analgesic agent
CPT/HCPCS: 74177; 76830; 76856; 80053; 80324; 80345; 80346; 80349; 80353; 80358; 80361; 81025; 83992; 85025; 96374; 96375; 99285; J1885; J2270; Q9967

== ENCOUNTER 2018-12-19 11:19 | Emergency (ER) | payer OTHER ==
[2018-12-19 11:19] VITALS: BMI 29.0
[2018-12-19 11:32] VITALS: RESP 16; TEMP 97.4; O2SAT 97
[2018-12-19] MEDS ORDERED: Sodium Chloride 0.9% 1,000 ML IV STA (11:58)
--- NOTE | 2018-12-19 12:06 | ED PDOC ---
HPI: General Adult Time Seen by Provider: 12/19/18 12:05 Chief Complaint (Nursing): Headache Chief Complaint (Provider): HEADACHE History Per: Patient (48 Y/O FEMALE H/O MIGRAINE HEADACHES HERE WITH MODERATE HEADACHE ON AND OFF X 4 DAYS NOT IMPROVING AT HOME. PATIENT IS ALLERGIC TO MOTRIN AND IS UNABLE TO TOLERATE TEXTURE OF TYLENOL. NO VOMITING. NOTED PHOTOPHOBIA) Past Medical History Vital Signs: Last Vital Signs Temp 97.4 F L 12/19/18 11:28 Pulse 85 12/19/18 11:28 Resp 16 12/19/18 11:28 BP 134/85 12/19/18 11:28 Pulse Ox 97 12/19/18 11:28 Primary Care Provider: Germán Francisco - Medical History PMH: Asthma, Bronchitis, Migraine - Surgical History Surgical History: Tonsillectomy - Family History Family History: States: Diabetes, Hypertension - Immunization History Hx Tetanus Toxoid Vaccination: (3 years ago) - Home Medications Home Medications: Ambulatory Orders Medication Instructions Recorded Albuterol HFA [Ventolin HFA 90 2 puff INH Q4H PRN 04/19/14 mcg/actuation (8 g)] Cyclobenzaprine [Cyclobenzaprine 10 mg PO BID PRN #10 tab 08/12/18 HCl] traMADol [Ultram] 50 mg PO TID PRN #15 tab 10/09/18 - Allergies Allergies/Adverse Reactions: Allergies Allergy/AdvReac Type Severity Reaction Status Date / Time acetaminophen [From Tylenol] AdvReac NAUSEA Verified 12/19/18 11:26 ibuprofen [From Motrin] AdvReac VOMITING Verified 12/19/18 11:26 - Laboratory Results Result Diagrams: 12/19/18 12:18 12/19/18 12:18 - ECG O2 Sat by Pulse Oximetry: 97 - Progress ED Course And Treament: reglan 10 mg iv x 1 dose NS 1 liter 500 ml per hour Patient's headache resolved after treatment. Disposition - Clinical Impression Clinical Impression: Migraine - Patient ED Disposition Is Patient to be Admitted: No - Disposition Referrals: [facility] [Outside] Disposition: Routine/Home Disposition Time: :19 Condition: FAIR Instructions: Migraine Headaches in Adults Forms: [facility] ED School/Work Excuse
[2018-12-19 12:24] LABS: BASO # 0.1 K/uL (0.0-0.2); EOS # 0.1 K/uL (0.0-0.7); EOS % 1.8 % (0.0-4.0); HEMOGLOBIN 11.6 g/dL (12.0-16.0); LYMPH # 3.5 K/uL (1.0-4.3); LYMPH % 44.7 % (20.0-40.0); MEAN CELL VOLUME 89.5 fl (81.0-99.0); MEAN CORPUSCULAR HGB CONC 33.5 g/dL (33.0-37.0); MEAN PLATELET VOLUME 6.9 fl (7.2-11.7); MONO # 0.5 K/uL (0.0-0.8); MONO % 6.9 % (0.0-10.0); NEUT # 3.6 K/uL (1.8-7.0); NEUT % 45.6 % (50.0-75.0); NRBC % 0.1 % (0.0-0.0); RBC 3.88 Mil/uL (3.80-5.20); RED CELL DISTRIBUTION WIDTH 13.5 % (11.5-14.5); WHITE BLOOD COUNT 7.8 K/uL (4.8-10.8)
[2018-12-19 12:36] LABS: BLOOD UREA NITROGEN 13 mg/dl (7-17); CALCIUM 9.4 mg/dL (8.4-10.2); GFR NON-AFRICAN AMERICAN > 60
[2018-12-19 14:46] VITALS: BP 145/87; PULSE 80
== END 2018-12-19 14:20 | disposition home or self-care (01) ==
LOC: H.ER 11:19
DX: G43.909 Migraine, unspecified, not intractable, without status migrainosus (principal); J45.909 Unspecified asthma, uncomplicated; Z88.6 Allergy status to analgesic agent
CPT/HCPCS: 80048; 82948; 85025; 96361; 96374; 99285; J2765; J7030